=== PATIENT | female | born 1990 | race Hispanic/Latino ===

== ENCOUNTER 2025-06-29 02:58 | Inpatient (IN) | payer OTHER, SELFPAY ==
[2025-06-28 18:59] VITALS: BP 140/89
[2025-06-28 19:26] LABS: Hematocrit 40.9 % (37.0-47.0); Hemoglobin 13.5 g/dL (12.0-16.0); Mean Corp Hgb Conc. 33.0 g/dL (33.0-37.0); Mean Corpuscular Volume 87.6 fL (81.0-99.0); Nucleated Red Blood Cells % 0 %; Platelet Count 295 10^3/uL (130-400); Red Cell Dist. Width 12.2 % (11.5-14.5)
[2025-06-28 19:32] LABS: HCG, Serum Qualitative Screen Negative
[2025-06-28 19:36] LABS: ALT (SGPT) 30 U/L (0-35); AST (SGOT) 26 U/L (14-36); Albumin 4.7 g/dl (3.5-5.0); Alkaline Phosphatase 98 U/L (38-126); Blood Urea Nitrogen 17 mg/dl (7-17); Calcium 9.4 mg/dl (8.4-10.2); Carbon Dioxide 28 mmol/L (22-30); Chloride 101 mmol/L (98-107); Glucose 149 mg/dl (70-99); Lipase 83 U/L (23-300); Potassium 4.2 mmol/L (3.5-5.1); Sodium 137 mmol/L (135-145); Total Protein 8.2 g/dl (6.3-8.2); eGFR > 60.00
--- NOTE | 2025-06-28 21:43 | ED.GENMED ---
History of Present Illness
<Terry Garcia MD, Resident - Last Filed: 06/29/25 02:08>
General
Chief Complaint: Abdominal Pain
Source: patient and significant other
Exam Limitations: none
Time Seen by Provider: 06/28/25 21:09
History of Present Illness
History of Present Illness:
34-year-old female with her present at bedside presents with severe constant lower abdominal pain since this morning 8 AM, describes the pain as burning, has gotten progressively worse. Associated with 10 episodes of nonbloody vomiting,
chills, scant bloody vaginal discharge, urinary frequency, constipation. Patient has had history of previous UTIs. No fever, cough, diarrhea, chest pain, shortness of breath, dysuria.
Review of Systems
<Terry Garcia MD, Resident - Last Filed: 06/29/25 02:08>
Review of Systems
Allergies reviewed?: Yes
All Other Systems: ROS reviewed and negative except as documented in HPI and ROS
Phy Exam
<Terry Garcia MD, Resident - Last Filed: 06/29/25 02:08>
General Physical Exam
General Presentation: well appearing and no apparent distress
General Skin: warm and dry
General Habitus: normal
General Mental: alert
Cardiovascular Exam
Cardiovascular Exam: regular rate/rhythm and no edema
Pulmonary Exam
Pulmonary Exam: lungs clear and no respiratory distress
Gastrointestinal Exam
Gastrointestinal Exam: normal bowel sounds, soft, non distended and tender (suprapubic tenderness)
Neurological Exam
Neurological Exam: alert and oriented x3
Musculoskeletal Exam
Musculoskeletal Exam: full ROM and no edema
Sepsis
<Terry Garcia MD, Resident - Last Filed: 06/29/25 02:08>
Sepsis Screen
Sepsis Screen: Sepsis
Date: 06/29/25
Time: 02:07
<Molly Marin, DO - Last Filed: 06/29/25 14:12>
Sepsis Screening
Sepsis Assessment: Sepsis
Sepsis Screening: Lactate >2mmol/L
Sepsis Screen
Sepsis Screen: Sepsis
Date: 06/29/25
Time: 14:12
Course
<Terry Garcia MD, Resident - Last Filed: 06/29/25 02:08>
Orders/Labs/Results
Orders:
Orders
06/28/25 19:02
Test Result ONCE
06/28/25 19:09
Complete Blood Count/With Diff Urgent
Comprehensive Metabolic Panel Urgent
HCG, Serum Qualitative Screen Urgent
Comment: Notify provider if positive test present
Lipase Urgent
06/28/25 21:29
0.9% Sodium Chloride 1000 ml [Nss] 1,000 ml IV BOLUS
Ketorolac [Toradol] 15 mg IV NOW STA
06/28/25 21:38
Lactic Acid Urgent
Urinalysis Reflex To Culture Urgent
Date Specimen was Collected: 06/28/25
Time Specimen was Collected: 21:33
Urine Microscopic Reflex Cult Urgent
Urine Culture Urgent
KYLER Source: U
Specimen Description:
Date Specimen was Collected: 06/28/25
Time Specimen was Collected: 21:33
06/28/25 22:19
CT Abd/pelvis W Iv Cont Urgent
Comment:
Reason For Exam: L-flank pain, urinary symptoms, stone vs pyelo
06/28/25 22:20
Morphine Sulfate 4 mg IV NOW STA
06/28/25 22:33
Acetaminophen [Tylenol] 1,000 mg PO NOW STA
06/28/25 22:56
Cefepime HCl [Maxipime] 2,000 mg IV NOW STA
06/28/25 23:45
Blood Culture Q30M
KYLER Source: Blood/Venous
Specimen Description:
06/29/25 00:07
Blood Culture Q30M
KYLER Source: Blood/Venous
Specimen Description:
06/29/25 01:56
0.9% Sodium Chloride 1000 ml [Nss] 1,000 ml IV BOLUS
06/29/25 02:25
Admit/Transfer Patient As Directed
Co-Sign Provider:
Level of Care: Inpatient admission
Assign to:: IMU- Intermediate Care
Physician / Group: Domo
Diagnosis: L Ureteral Stone, UTI, Sepsis
Reason for Hospitalization: L Ureteral Stone, UTI, Sepsis
Expected length of stay greater than two midnights?: Yes
ELOS- Estimated Length of Stay in days: 3
I certify the patient meets the requirements for IP care: Yes
PRN Pain Medication Management As Directed
May give lesser potent ordered pain med per pt: Yes
preference::
Protocol:: Medication orders for pain may be administered in a
manner that supports deferring to patient preference
when the pt is:
- Requesting an ordered lesser potent pain medication.
Least to most potent pain medications are defined
as: acetaminophen < NSAID < tramadol < opioids
(morphine, oxycodone, hydromorphone).
- Requesting a lesser dose of the same medication IF
ORDERED.
- Requesting a less intrusive route of administration
if both routes are prescribed by the provider (PO <
IV).
06/29/25 02:26
Code Status As Directed
Resuscitation Status: Full Code
06/29/25 02:34
Dexamethasone Sod Phosphate [Decadron] 20 mg .ROUTE .STK-MED ONE
Fentanyl Citrate/Pf [Sublimaze] 100 mcg .ROUTE .STK-MED ONE
Lidocaine 2% Mpf [Xylocaine Mpf 2%] 100 mg .ROUTE .STK-MED ONE
Midazolam HCl [Versed] 2 mg .ROUTE .STK-MED ONE
Ondansetron Injectable [Zofran] 4 mg .ROUTE .STK-MED ONE
Propofol [Diprivan] 20 ml .ROUTE .STK-MED
06/29/25 03:59
0.9% Sodium Chloride 1000 ml [Nss] 1,000 ml IV 100 mls/hr
Acetaminophen [Tylenol] 650 mg PO Q4HPRN PRN
HYDROmorphone [Dilaudid] 0.5 mg IV Q4HPRN PRN
Ondansetron Injectable [Zofran] 4 mg IV Q6HPRN PRN
06/29/25 03:59
UROLOGY CONSULT Routine
Consulting Provider: Torres Jacobs
Was physician already notified: Yes
Comment: L Ureteral Stone, UTI, Sepsis
Activity As Directed
Activity Level: Ambulate
With Assistance
EKG with chest pain [ECG as needed] As Directed
ECG as needed for:: Chest Pain
I/O [Intake/ Output] As Directed
Frequency: Per unit guidelines
Pneumatic Compression Sleeves As Directed
Type: Knee high
Vital Signs As Directed
Frequency: Per unit guidelines
Weight As Directed
Frequency: Daily
Oxygen Therapy [O2 Therapy] [RESP] Routine
Titrate/Wean O2 to maintain O2 sat greater than (%): 94
DX Deep Vein Thrombosis Video Routine
06/29/25 06:02
Basic Metabolic Panel IN AM
Complete Blood Count/No Diff IN AM
Lactic Acid Q6H
06/29/25 08:00
CefTRIAXone [Rocephin] 1,000 mg IV Q24H
06/29/25 11:57
Lactic Acid Q6H
06/29/25 18:00
Lactic Acid Q6H
Abnormal Lab Results
06/28/25 06/28/25
19:09 21:38
WBC 16.6 H 10^3/uL
(4.8-10.8)
Abs Immat Gran (auto) 0.1 H 10^3/uL
(0-0.05)
Absolute Neuts (auto) 15.1 H 10^3/uL
(1.4-6.5)
Absolute Lymphs (auto) 0.8 L 10^3/uL
(1.2-3.4)
Neutrophils % 90.8 H %
(42.2-75.2)
Lymphocytes % 5.1 L %
(20.5-51.1)
Glucose 149 H mg/dl
(70-99)
Lactic Acid 2.3 H mmol/L
(0.7-2.0)
Urine Ketones 2+ A
(Negative)
Ur Occult Blood Reflex 4+ A
(Negative)
Leukocyte Esterase Rfl 1+ A
(Negative)
Urine RBC 7-10 A /HPF
(0-2)
Urine Bacteria (Reflex) Moderate A
(Negative)
Urine Albumin (Reflex) 2+ A
(Neg - Trace)
06/28/25 19:09
06/28/25 19:09
Vital Signs
Initial and Last Documented VS:
Initial Vital Signs
Temp Pulse Resp BP Pulse Ox
98.3 F 103 20 140/89 98
06/28/25 18:59 06/28/25 18:59 06/28/25 18:59 06/28/25 18:59 06/28/25 18:59
Last Documented Vital Signs
Temp Pulse Resp BP Pulse Ox
98.4 F 107 16 101/62 96
06/29/25 10:55 06/29/25 10:55 06/29/25 10:55 06/29/25 10:55 06/29/25 10:55
<Molly Marin, DO - Last Filed: 06/29/25 14:12>
Orders/Labs/Results
Orders:
Orders
06/28/25 19:02
Test Result ONCE
06/28/25 19:09
Complete Blood Count/With Diff Urgent
Comprehensive Metabolic Panel Urgent
HCG, Serum Qualitative Screen Urgent
Comment: Notify provider if positive test present
Lipase Urgent
06/28/25 21:29
0.9% Sodium Chloride 1000 ml [Nss] 1,000 ml IV BOLUS
Ketorolac [Toradol] 15 mg IV NOW STA
06/28/25 21:38
Lactic Acid Urgent
Urinalysis Reflex To Culture Urgent
Date Specimen was Collected: 06/28/25
Time Specimen was Collected: 21:33
Urine Microscopic Reflex Cult Urgent
Urine Culture Urgent
KYLER Source: U
Specimen Description:
Date Specimen was Collected: 06/28/25
Time Specimen was Collected: 21:33
06/28/25 22:19
CT Abd/pelvis W Iv Cont Urgent
Comment:
Reason For Exam: L-flank pain, urinary symptoms, stone vs pyelo
06/28/25 22:20
Morphine Sulfate 4 mg IV NOW STA
06/28/25 22:33
Acetaminophen [Tylenol] 1,000 mg PO NOW STA
06/28/25 22:56
Cefepime HCl [Maxipime] 2,000 mg IV NOW STA
06/28/25 23:45
Blood Culture Q30M
KYLER Source: Blood/Venous
Specimen Description:
06/29/25 00:07
Blood Culture Q30M
KYLER Source: Blood/Venous
Specimen Description:
06/29/25 01:56
0.9% Sodium Chloride 1000 ml [Nss] 1,000 ml IV BOLUS
06/29/25 02:25
Admit/Transfer Patient As Directed
Co-Sign Provider:
Level of Care: Inpatient admission
Assign to:: IMU- Intermediate Care
Physician / Group: Domo
Diagnosis: L Ureteral Stone, UTI, Sepsis
Reason for Hospitalization: L Ureteral Stone, UTI, Sepsis
Expected length of stay greater than two midnights?: Yes
ELOS- Estimated Length of Stay in days: 3
I certify the patient meets the requirements for IP care: Yes
PRN Pain Medication Management As Directed
May give lesser potent ordered pain med per pt: Yes
preference::
Protocol:: Medication orders for pain may be administered in a
manner that supports deferring to patient preference
when the pt is:
- Requesting an ordered lesser potent pain medication.
Least to most potent pain medications are defined
as: acetaminophen < NSAID < tramadol < opioids
(morphine, oxycodone, hydromorphone).
- Requesting a lesser dose of the same medication IF
ORDERED.
- Requesting a less intrusive route of administration
if both routes are prescribed by the provider (PO <
IV).
06/29/25 02:26
Code Status As Directed
Resuscitation Status: Full Code
06/29/25 02:34
Dexamethasone Sod Phosphate [Decadron] 20 mg .ROUTE .STK-MED ONE
Fentanyl Citrate/Pf [Sublimaze] 100 mcg .ROUTE .STK-MED ONE
Lidocaine 2% Mpf [Xylocaine Mpf 2%] 100 mg .ROUTE .STK-MED ONE
Midazolam HCl [Versed] 2 mg .ROUTE .STK-MED ONE
Ondansetron Injectable [Zofran] 4 mg .ROUTE .STK-MED ONE
Propofol [Diprivan] 20 ml .ROUTE .STK-MED
06/29/25 03:59
0.9% Sodium Chloride 1000 ml [Nss] 1,000 ml IV 100 mls/hr
Acetaminophen [Tylenol] 650 mg PO Q4HPRN PRN
HYDROmorphone [Dilaudid] 0.5 mg IV Q4HPRN PRN
Ondansetron Injectable [Zofran] 4 mg IV Q6HPRN PRN
06/29/25 03:59
UROLOGY CONSULT Routine
Consulting Provider: Torres Jacobs
Was physician already notified: Yes
Comment: L Ureteral Stone, UTI, Sepsis
Activity As Directed
Activity Level: Ambulate
With Assistance
EKG with chest pain [ECG as needed] As Directed
ECG as needed for:: Chest Pain
I/O [Intake/ Output] As Directed
Frequency: Per unit guidelines
Pneumatic Compression Sleeves As Directed
Type: Knee high
Vital Signs As Directed
Frequency: Per unit guidelines
Weight As Directed
Frequency: Daily
Oxygen Therapy [O2 Therapy] [RESP] Routine
Titrate/Wean O2 to maintain O2 sat greater than (%): 94
DX Deep Vein Thrombosis Video Routine
06/29/25 06:02
Basic Metabolic Panel IN AM
Complete Blood Count/No Diff IN AM
Lactic Acid Q6H
06/29/25 08:00
CefTRIAXone [Rocephin] 1,000 mg IV Q24H
06/29/25 11:57
Lactic Acid Q6H
06/29/25 18:00
Lactic Acid Q6H
Abnormal Lab Results
06/28/25 06/28/25
19:09 21:38
WBC 16.6 H 10^3/uL
(4.8-10.8)
Abs Immat Gran (auto) 0.1 H 10^3/uL
(0-0.05)
Absolute Neuts (auto) 15.1 H 10^3/uL
(1.4-6.5)
Absolute Lymphs (auto) 0.8 L 10^3/uL
(1.2-3.4)
Neutrophils % 90.8 H %
(42.2-75.2)
Lymphocytes % 5.1 L %
(20.5-51.1)
Glucose 149 H mg/dl
(70-99)
Lactic Acid 2.3 H mmol/L
(0.7-2.0)
Urine Ketones 2+ A
(Negative)
Ur Occult Blood Reflex 4+ A
(Negative)
Leukocyte Esterase Rfl 1+ A
(Negative)
Urine RBC 7-10 A /HPF
(0-2)
Urine Bacteria (Reflex) Moderate A
(Negative)
Urine Albumin (Reflex) 2+ A
(Neg - Trace)
06/28/25 19:09
06/28/25 19:09
Vital Signs
Initial and Last Documented VS:
Initial Vital Signs
Temp Pulse Resp BP Pulse Ox
98.3 F 103 20 140/89 98
06/28/25 18:59 06/28/25 18:59 06/28/25 18:59 06/28/25 18:59 06/28/25 18:59
Last Documented Vital Signs
Temp Pulse Resp BP Pulse Ox
98.4 F 107 16 101/62 96
06/29/25 10:55 06/29/25 10:55 06/29/25 10:55 06/29/25 10:55 06/29/25 10:55
<Terry Garcia MD, Resident - Last Filed: 06/29/25 02:08>
MDM/Problems Addressed
Differential Diagnosis Includes:
UTI, pyelonephritis, nephrolithiasis, appendicitis, pancreatitis, ectopic , ovarian torsion
MDM/Problems Addressed:
- Vitals show temperature of 101.8
- CBC shows leucocytosis with wbc of 16.6
- CMP is unremarkable
- UA shows 4+ occult blood
- B Hcg- negative
- Toradol for pain however not controlled so added Tylenol and morphine
- order empiric cefepime since patient meets criteria for sepsis, and blood cultures
- Ct abdomen shows CT shows a 4 x 5 mm stone at the left UVJ with hydronephrosis and perinephric stranding, consulted urology who will remove stone as it cannot pass naturally
<Terry Garcia MD, Resident - Last Filed: 06/29/25 02:08>
*Pulse Oximetry
SaO2: 98
Oxygen Mode of Delivery: Room air
Patient hypoxic: no
*Critical Care Note
Total Time (30-74mins, 75-104mins- exclusive of procedures): Not Applicable
<Molly Marin DO - Last Filed: 06/29/25 14:12>
*Critical Care Note
Total Time (30-74mins, 75-104mins- exclusive of procedures): 40
comment:
The high probability of a clinically significant, sudden or life threatening deterioration of the genitourinary system(s), sepsis, required my full and direct attention, intervention and personal management. The aggregate critical care time was 40
minutes. This time is in addition to time spent performing reported procedures but includes the following:
[x] Data Review and interpretation
[x] Patient assessment and monitoring of vital signs
[x] Documentation
[x] Medication orders and management
ED Attending Note
<Terry Garcia MD, Resident - Last Filed: 06/29/25 02:08>
-
Portions of this chart may have been created with voice recognition software.� Occasional wrong word or��sound alike� substitutions may have occurred due to the inherent limitations of voice recognition software.
<Molly Marin DO - Last Filed: 06/29/25 14:12>
ED Attending Note
Patient seen and examined by attending physician: Yes
I performed the substantive portion of visit, reviewed & personally made and approve the management plan that is documented in note by myself or BONNIE.: Yes
I performed a history and physical exam of patient and discussed management with resident, I reviewed resident's note and agree with documented findings and plan of care.: Yes
ED Attending Note:
34-year-old female, Gabonese-speaking, without significant past medical history presenting to the emergency department for abdominal pain. Patient reports symptoms started at 8 AM this morning, notes pain in her left flank with radiation to her
lower abdomen. Also reports dysuria, nausea, vomiting, fevers and chills. Reports increased urinary frequency. Denies any history of kidney stone. Denies prior history of abdominal surgeries. Denies chest pain or difficulty breathing. Vital
signs on arrival significant for mild tachycardia.
On exam, patient is uncomfortable in appearance secondary to pain, noting pain mostly to the left flank, going into the abdomen. On exam, minimal tenderness to the abdomen, slight left lower quadrant pain. Primary concern for pyelonephritis versus
nephrolithiasis. Patient with rigors. Initial re-temperature is normal. Plan for laboratory analysis, urinalysis, CT imaging. Toradol administered for pain
22:45 - After Toradol, notes that pain has improved, however still having shaking chills. Retemperature shows 100.8 orally. Will administer Tylenol. Labs show leukocytosis and lactic acid added which is 2.5. At this time concern for sepsis.
Blood pressure remained stable without concerns for severe sepsis or septic shock so we will continue IV fluids as clinically indicated. Will start on cefepime for concern of possible urinary component. Pending CT imaging
00:30 -CT shows a 4 x 5 mm stone at the left UVJ with hydronephrosis and perinephric stranding. Concern for infected stone. Will discuss with urology with plan for admission, and likely need for urgent stone removal
Discharge Plan
Departure
Patient Disposition: Admit
Date of Disposition: 06/29/25
Time of Disposition: 00:44
Presentation/result/management discussed w/ accepting MD/DO: Hospitalist
Patient with high blood pressure during this ER visit?: No
Condition: Fair
Discharge Problem:
Calculus of left ureter, Fever, Sepsis
Interventions
Interventions:
*Risk Screen - Suicide Last Done: 06/29/25 06:16
*General Assessment Last Done: 06/28/25 18:59
*Neglect/Abuse Screening Last Done: 06/28/25 18:59
*ED- Fall Risk Assessment Last Done: 06/29/25 02:52
*Nursing Disposition Last Done: 06/29/25 02:52
OL-Ywgjne-Oimcttlfwf Assessment Last Done: 06/28/25 22:00
Discharge Date and Time
Discharge Date/Time: 06/29/25 03:10
[2025-06-28] MEDS: NSS 1000 IV (21:44)
[2025-06-28] MEDS: TORADOL 15 MG IV (21:44)
[2025-06-28 21:54] LABS: Urine Character Slightly Cloudy (Clear)
[2025-06-28 22:08] LABS: Urine Squamous Cell >30 /LPF (Few); Urine Urothelial Cell 0-2 /LPF (FEW)
[2025-06-28] MEDS: TYLENOL 1000 MG PO (22:39)
[2025-06-28] MEDS: MAXIPIME 2000 MG IV (23:26)
[2025-06-28] MEDS: MORPHINE SULFATE 4 MG IV (23:49)
[2025-06-29] VITALS (17 sets, daily range): BP systolic 90–146; BP diastolic 46–86; BMI 41.0
--- NOTE | 2025-06-29 02:28 | HPS.HSE ---
Family Physician
-
Family Physician: * NONE
Chief Complaint
-
Abd pain
History of Present Illness
Patient is a 34y F with PMH significant for obesity who presents to ED complaining of abdominal pain. History obtained from patient and her at the bedside. Patient was feeling well until around 8 AM this morning when she developed
sudden onset of severe LLQ pain. Pain radiated around to the L flank and was associated with nausea and multiple episodes of emesis. Pain persisted throughout the day regardless of position, activity, OTC medications, etc. Patient presented to
the ED for further evaluation.
She denies any prior history of similar symptoms.
She denies any known history of kidney stones; though, she does report prior instances of severe / self-limited lower back pain which she had always attributed to muscular pains.
Patient has a 21 month old child and she is currently breast feeding.
Medical History
Past Medical History
Past Medical History: Reports Other
Additional Past Medical History:
Obesity
Past Surgical History: Reports Other
Additional Past Surgical History:
Septoplasty
Social History
Tobacco: Non-smoker
Alcohol: Occasional
Drug: None
Personal:
Living: With Family
Family History
Family History: Not pertinent
Allergies / Home Medications
Allergies reflects when Allergies were last updated in [employer].
Home Medications with original date entered in [employer]
Allergy/Medication List:
Allergies
Allergy/AdvReac Type Severity Reaction Status Date / Time
No Known Allergies Allergy Unverified 09/20/23 16:18
Home Medications
No Current Medications
Review of Systems
-
History Source: Patient
A 12 point ROS was completed and negative except as noted: Yes
Constitutional: Reports Fatigue; Denies Fever or Chills
EENT: Denies Sore Throat
Respiratory: Denies Cough or Trouble Breathing
Cardiac: Denies Chest Pain or Palpitations
Abdomen/GI: Reports Abdominal Pain, Nausea and Vomiting; Denies Diarrhea, Bloody Stools or Black Stools
: Reports Frequency and Flank Pain; Denies Dysuria or Bleeding
Neurological: Denies Dizzy or Headache
Psych: Denies Depression or Anxiety
Physical Exam
Vital Signs
Vital Signs
Temp Pulse Resp BP Pulse Ox
100.8 F H 133 24 122/65 96
06/28/25 22:37 06/29/25 01:45 06/29/25 01:45 06/29/25 01:30 06/29/25 01:45
Physical Exam
General: Other (34y F in mild distress due to abdominal pain.)
HEENT: Moist mucous membranes and Other (Thick neck.)
Respiratory: Clear; No Wheezes, Rales or Rhonchi
Cardiac: S1/S2 and Tachycardia; No Murmur
GI: Soft, Non Distended, Normal Bowel Sounds and Other (Pos L sided abdominal tenderness with voluntary guarding. Pos BS.)
Musculoskeletal: No Clubbing, No Cyanosis and No Edema
Neuro: AO x 3
Laboratory Results
-
06/28/25 19:09
06/28/25 19:09
Laboratory Results
Lactic Acid 2.3 mmol/L (0.7-2.0) H 06/28/25 21:38
Total Bilirubin 1.0 mg/dl (0.2-1.3) 06/28/25 19:09
AST 26 U/L (14-36) 06/28/25 19:09
ALT 30 U/L (0-35) 06/28/25 19:09
Alkaline Phosphatase 98 U/L (38-126) 06/28/25 19:09
Lipase 83 U/L (23-300) 06/28/25 19:09
Impression/Plan
-
A/P: Patient is a 34y F with no significant PMH who presents to ED complaining of abrupt onset of L abdominal pain / L flank pain since this AM.
Left Ureteral Stone
UTI secondary to the above
Sepsis secondary to the above
- Admit for further evaluation and treatment.
- Patient presents with fever, tachycardia, tachypnea, leukocytosis and exam / CT findings consistent with L ureteral stone / obstruction.
- To OR this evening for stone removal / stent and alleviating obstruction.
- Appreciate Urology evaluation.
- IVFs, IV abx pending culture data, pain control, antipyretics, etc.
- Follow fever curve, serial lactate, monitor for clinical improvement.
Obesity due to excess calories
- Affects all aspects of care.
- Encourage healthy diet and increased exercise with goal of weight loss.
DVT Prophylaxis: SCDs
Code Status: Full
--- NOTE | 2025-06-29 03:06 | CONS.URO ---
Consultation
-
Date/Time Consultation Performed: 0300 06/29/25
Performing Provider: Peffer
Reason for Consultation: Septic stone
Medical History
History of Present Illness
34F with sepsis and obstructing L distal ureteral stone
No prior stone history
Past Medical History
Past Medical History: Other
Family History
Family History: Reviewed & Not Pertinent
Allergies/Home Medications
Allergies
Allergy/AdvReac Type Severity Reaction Status Date / Time
No Known Allergies Allergy Unverified 09/20/23 16:18
Home Medications
�Medication �Instructions �Recorded �Confirmed �Type
vitamin-ferrous fumarate 1 tab PO DAILY Supplement 09/20/23 09/20/23 History
28 mg iron-folic acid 800 mcg
tablet ( Tablet)
ibuprofen 600 mg tablet 600 mg PO Q6HPRN PRN moderate 09/24/23 Rx
pain/cramps #90 tabs
Physical Exam
Vital Signs
Vital Signs
Temp Pulse Resp BP Pulse Ox
100.8 F H 132 28 97/60 97
06/28/25 22:37 06/29/25 02:45 06/29/25 02:45 06/29/25 02:30 06/29/25 02:45
Lab / Testing Results
Laboratory Results
06/28/25 19:09
06/28/25 19:09
Physical Exam
General: Well Developed, Well Nourished and No Apparent Distress
GI: Soft
Genito-urinary: Costovertebral Angle Tend
Neuro: AO x 3
Psych: Calm and Intact Judgement
Assessment / Plan
-
34F with sepsis and obstructing L distal ureteral stone
- OR emergently for cystoscopy, L ureteral stent
- Broad spectrum abx pending cultures
- Outpatient follow up for stone and stent removal after discharge
--- NOTE | 2025-06-29 04:24 | W.IMMPOSTOP ---
Surgical Immed Post Op Note
-
Primary Surgeon: Peffer
Assisting Surgeon: -
Pre-op Diagnosis: sepsis, L ureteral stone
Post-op Diagnosis: same
Procedure Performed: L ureteral stent
Anesthesia Type: gen
Specimen / Cultures: none
Estimated Blood Loss: none
Complications: none
Operative Findings: purulent urine
[2025-06-29] MEDS: NSS 1000 IV ×4 (05:41→21:07)
[2025-06-29] MEDS: MOTRIN 400 MG PO (06:16)
[2025-06-29 06:34] LABS: Hematocrit 34.6 % (37.0-47.0); Hemoglobin 11.2 g/dL (12.0-16.0); Mean Corp Hgb Conc. 32.4 g/dL (33.0-37.0); Mean Corpuscular Volume 89.4 fL (81.0-99.0); Platelet Count 202 10^3/uL (130-400); Red Cell Dist. Width 12.7 % (11.5-14.5)
[2025-06-29 06:44] LABS: Blood Urea Nitrogen 16 mg/dl (7-17); Calcium 7.9 mg/dl (8.4-10.2); Carbon Dioxide 24 mmol/L (22-30); Chloride 105 mmol/L (98-107); Glucose 126 mg/dl (70-99); Potassium 3.3 mmol/L (3.5-5.1); Sodium 136 mmol/L (135-145); eGFR > 60.00
--- NOTE | 2025-06-29 08:38 | W.PN.HOSP.TC ---
Today's Communication/Plan
-
IVF
IV Ceftriaxone
trend Lactate
appreciate Urology
Assessment / Plan
Assessment / Plan
A/P: Patient is a 34y F with no significant PMH who presents to ED complaining of abrupt onset of L abdominal pain / L flank pain since this AM. She was febrile up to 100.[address] with obstructing stone left ureter at UVJ 5 x 4 mm
with mild to moderate hydronephrosis, prominent perinephric fat stranding.
Left Ureteral Stone
UTI secondary to the above
Severe Sepsis secondary to the above
-s/p OR early this morning for stone removal / stent and alleviating obstruction.
- Appreciate Urology evaluation.
- continue IVF
- trend lactate
- IV Ceftriaxone, follow up culture; UA without inflammation but may not have been from blocked infected urine
Obesity due to excess calories
- Affects all aspects of care.
- Encourage healthy diet and increased exercise with goal of weight loss.
DVT Prophylaxis: SCDs
Code Status: Full
Anticipated Discharge: 24 - 48 hours
Subjective/Interval History
-
Date of Service: June 29, 2025
seen post OR
feeling hungry, no longer nauseated
mild pain
Objective Data
-
Labs:
Laboratory Results
06/29/25
06:02
WBC 14.2 H
Hgb 11.2 L
Hct 34.6 L
Plt Count 202 D
Sodium 136
Potassium 3.3 L
Chloride 105
Carbon Dioxide 24
BUN 16
Creatinine 0.9
Glucose 126 H
Calcium 7.9 L D
Vital Signs:
Vital Signs
Temp Pulse Resp BP Pulse Ox
97.7 F 124 16 99/67 100
06/29/25 05:10 06/29/25 05:10 06/29/25 05:10 06/29/25 05:10 06/29/25 05:10
I&O
06/28/25 06/29/25 06/30/25
06:59 06:59 06:59
Intake Total 350 / 350
Balance 350 / 350
Review of Systems
-
History Source: Patient
All other systems: Reviewed and negative
Physical Exam
-
General: No Apparent Distress
HEENT: PERRLA
Respiratory: Clear to Auscultation; Negative Wheezes
Cardiac: Regular Rhythm and S1/S2
GI: Soft and Nontender
Musculoskeletal: No Edema
Skin: Warm and Dry; Negative Rash
Neuro: AO x 3
Psych: Calm
Data Reviewed
-
Diagnostic Radiology: Report Reviewed by me
Labs: Labs Reviewed by me
[2025-06-29] MEDS: ROCEPHIN 1000 MG IV (09:01)
[2025-06-29] MEDS: STERILE WATER FOR INJECTION 10 ML IV (09:01)
[2025-06-29] MEDS: KCL 40 MEQ PO (09:01)
[2025-06-29 09:16] LABS: Magnesium 1.6 mg/dl (1.6-2.3)
[2025-06-29] MEDS: TYLENOL 650 MG PO ×2 (11:22→21:12)
--- NOTE | 2025-06-29 12:52 | W.PN.URO.CBU ---
Today's Communication / Plan
-
- s/p cystoscopy, L ureteral stent 06/29
- Broad spectrum abx pending cultures
- Outpatient follow up for stone and stent removal after discharge
Assessment / Plan
-
34F with sepsis and obstructing L distal ureteral stone
- s/p cystoscopy, L ureteral stent 06/29
- Tolerating stent well with no colic
- Broad spectrum abx pending cultures
- Outpatient follow up for stone and stent removal after discharge
Diagnosis
-
Date of Service: June 29, 2025
-
Patient Diagnosis:
Fever, obstructing L ureteral stone
s/p stent placement 06/29/25
Subjective
-
no issues overnight
tolerating stent
Objective
-
Vital Signs
Temp Pulse Resp BP Pulse Ox
98.4 F 107 16 101/62 96
06/29/25 10:55 06/29/25 10:55 06/29/25 10:55 06/29/25 10:55 06/29/25 10:55
Intake and Output
06/28/25 06/29/25 06/30/25
06:59 06:59 06:59
Intake Total 350 / 350
Balance 350 / 350
Intake:
IV fluids (Total) 350 / 350
Normosol 350 / 350
Laboratory Results
06/29/25 06:02
06/29/25 06:02
Physical Exam
-
General - well developed, well nourished, no acute distress
--- NOTE | 2025-06-29 16:12 | CM ---
trade show manager reviewed patient's chart and met with patient and patient lives with her spouse in a 1st floor apartment at [facility], patient is independent with adl's and ambulation, no dme, home when stable, no needs.
PCP: Ila Gerard
Pharmacy: [facility] on [facility].
[2025-06-30 04:03] VITALS: BP 117/67
[2025-06-30] MEDS: NSS 1000 IV (05:02)
[2025-06-30 06:00] VITALS: BMI 41.5
[2025-06-30 07:00] VITALS: BP 95/68
[2025-06-30 07:22] LABS: Hematocrit 32.2 % (37.0-47.0); Hemoglobin 10.6 g/dL (12.0-16.0); Mean Corp Hgb Conc. 32.9 g/dL (33.0-37.0); Mean Corpuscular Volume 93.6 fL (81.0-99.0); Platelet Count 204 10^3/uL (130-400); Red Cell Dist. Width 13.2 % (11.5-14.5)
[2025-06-30 07:28] LABS: Blood Urea Nitrogen 14 mg/dl (7-17); Calcium 8.1 mg/dl (8.4-10.2); Carbon Dioxide 29 mmol/L (22-30); Chloride 108 mmol/L (98-107); Estimated Creatinine Clearance > 125 ml/min; Glucose 97 mg/dl (70-99); Magnesium 2.1 mg/dl (1.6-2.3); Potassium 3.9 mmol/L (3.5-5.1); Sodium 140 mmol/L (135-145); eGFR > 60.00
--- NOTE | 2025-06-30 08:23 | W.PN.URO.CBU ---
Today's Communication / Plan
-
- IV abx pending cultures - on ceftriaxone
- Trend WBC - increased today. Consider broader abx coverage if signs of worsening infection
- Outpatient follow up for stone and stent removal after discharge
Assessment / Plan
-
34F with sepsis and obstructing L distal ureteral stone
- s/p cystoscopy, L ureteral stent 06/29
- Tolerating stent well with no colic
- IV abx pending cultures - on ceftriaxone
- Trend WBC - increased today. Consider broader abx coverage if signs of worsening infection
- Outpatient follow up for stone and stent removal after discharge
Diagnosis
-
Date of Service: June 30, 2025
-
Patient Diagnosis:
Fever, obstructing L ureteral stone
s/p stent placement 06/29/25
Subjective
-
no events overnight
Objective
-
Vital Signs
Temp Pulse Resp BP Pulse Ox
99.6 F 107 16 95/68 96
06/30/25 07:00 06/30/25 07:00 06/30/25 07:00 06/30/25 07:00 06/30/25 07:00
Intake and Output
06/29/25 06/30/25 07/01/25
06:59 06:59 06:59
Intake Total 350 / 350 1860 / 1860
Balance 350 / 350 1860 / 1860
Intake:
Oral fluids 560 / 560
IV fluids (Total) 350 / 350 1300 / 1300
Normosol 350 / 350
Other:
Number of approximated MODERATE 3
amounts of urine
Laboratory Results
06/30/25 06:01
06/30/25 06:01
Physical Exam
-
General - well developed, well nourished, no acute distress
[2025-06-30 08:45] LABS: Nucleated Red Blood Cells % 0 %
[2025-06-30] MEDS: STERILE WATER FOR INJECTION 10 ML IV ×2 (08:53→19:59)
[2025-06-30] MEDS: ROCEPHIN 1000 MG IV (08:54)
--- NOTE | 2025-06-30 08:55 | W.PN.HOSP.TC ---
Today's Communication/Plan
-
WBCs increased, still with some abdominal pain
Transition to Cefepime
Recheck urine culture ordered
Assessment / Plan
Assessment / Plan
Physical Exam
General: No Apparent Distress
HEENT: Normocephalic
Respiratory: Clear to Auscultation Bilaterally
Cardiac: Regular Rhythm and S1/S2
GI: Soft and Nontender. Positive bowel sounds.
Musculoskeletal: No Edema
Skin: Warm and Dry; Negative Rash
Neuro: AO x 3
Psych: Calm
Assessment/Plan
Patient is a 34 y/o female with no significant PMH who presented to [facility] ED complaining of abrupt onset of L abdominal pain / L flank pain since this AM. She was febrile up to 100.[address] with obstructing stone left ureter at UVJ 5 x 4
mm with mild to moderate hydronephrosis, prominent perinephric fat stranding.
Left Ureteral Stone status post left ureteral stent
UTI secondary to the above
Severe Sepsis secondary to the above
-s/p OR early for urinary stent placement
- Appreciate Urology evaluation.
- WBC increasing, change IV Ceftriaxone to Cefepime especially in setting of some abdominal pain and rising WBCs, follow up culture; UA without inflammation but may not have been from blocked infected urine
Obesity due to excess calories
- Affects all aspects of care.
- Encourage healthy diet and increased exercise with goal of weight loss.
DVT Prophylaxis: SCDs. Lovenox.
Code Status: Full COde
Anticipated Discharge: 24 - 48 hours
Subjective/Interval History
-
Date of Service: June 30, 2025
Patient was seen and examined. Overall she is feeling better, no new symptoms.
Objective Data
-
Labs:
Laboratory Results
06/30/25
06:01
WBC 20.3 H
Hgb 10.6 L
Hct 32.2 L
Plt Count 204
Sodium 140
Potassium 3.9
Chloride 108 H
Carbon Dioxide 29
BUN 14
Creatinine 0.6
Glucose 97
Calcium 8.1 L
Vital Signs:
Vital Signs
Temp Pulse Resp BP Pulse Ox
99.6 F 107 16 95/68 96
06/30/25 07:00 06/30/25 07:00 06/30/25 07:00 06/30/25 07:00 06/30/25 07:00
I&O
06/29/25 06/30/25 07/01/25
06:59 06:59 06:59
Intake Total 350 / 350 1859
Balance 350 / 350 1859
[2025-06-30] MEDS: TYLENOL 650 MG PO ×2 (09:02→15:12)
[2025-06-30 11:15] VITALS: BP 106/72
[2025-06-30 13:15] LABS: Urine Character Clear (Clear)
[2025-06-30 13:37] LABS: Urine Squamous Cell 16-20 /LPF (Few)
--- NOTE | 2025-06-30 13:56 | CM ---
CM following re: discharge planning.
Reviewed pt's chart, met with pt.
Pt is s/p cystoscopy, L ureteral stent 06/29, continue supportive care. Per Urology, outpatient follow up for stone and stent removal after discharge.
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
D/C plan: home with family. to transport.
[2025-06-30 15:15] VITALS: BP 117/76
[2025-06-30] MEDS: TORADOL 15 MG IV (18:36)
[2025-06-30 19:05] VITALS: BP 102/66
[2025-06-30] MEDS: LOVENOX 40 MG SC (19:59)
[2025-06-30] MEDS: MAXIPIME 1000 MG IV (19:59)
[2025-06-30 23:00] VITALS: BP 112/71
[2025-07-01 03:00] VITALS: BP 117/71
[2025-07-01 05:31] VITALS: BMI 41.5
[2025-07-01] MEDS: TYLENOL 650 MG PO ×4 (06:21→22:18)
[2025-07-01 07:00] VITALS: BP 135/77
[2025-07-01 07:31] LABS: Hematocrit 31.7 % (37.0-47.0); Hemoglobin 10.5 g/dL (12.0-16.0); Mean Corp Hgb Conc. 33.1 g/dL (33.0-37.0); Mean Corpuscular Volume 91.4 fL (81.0-99.0); Nucleated Red Blood Cells % 0 %; Platelet Count 224 10^3/uL (130-400); Red Cell Dist. Width 12.7 % (11.5-14.5)
[2025-07-01 07:43] LABS: Blood Urea Nitrogen 9 mg/dl (7-17); Calcium 8.4 mg/dl (8.4-10.2); Carbon Dioxide 31 mmol/L (22-30); Chloride 105 mmol/L (98-107); Estimated Creatinine Clearance > 125 ml/min; Glucose 91 mg/dl (70-99); Potassium 4.1 mmol/L (3.5-5.1); Sodium 139 mmol/L (135-145); eGFR > 60.00
[2025-07-01] MEDS: LOVENOX 40 MG SC ×2 (08:07→20:34)
[2025-07-01] MEDS: MAXIPIME 1000 MG IV (08:10)
[2025-07-01] MEDS: STERILE WATER FOR INJECTION 10 ML IV (08:11)
[2025-07-01 11:00] VITALS: BP 114/74
--- NOTE | 2025-07-01 11:46 | W.PN.HOSP.TC ---
Today's Communication/Plan
-
WBC improving
Switch to oral antibiotics tonight
Monitor going into tomorrow, and if doing well and leukocytosis continues to improve, will discharge
Assessment / Plan
Assessment / Plan
Physical Exam
General: No Apparent Distress
HEENT: Normocephalic
Respiratory: Clear to Auscultation Bilaterally
Cardiac: Regular Rhythm and S1/S2
GI: Soft and Nontender. Positive bowel sounds.
Musculoskeletal: No Edema
Skin: Warm and Dry; Negative Rash
Neuro: AO x 3
Psych: Calm
Assessment/Plan
Patient is a 34 y/o female with no significant PMH who presented to [facility] ED complaining of abrupt onset of L abdominal pain / L flank pain since this AM. She was febrile up to 100.[address] with obstructing stone left ureter at UVJ 5 x 4
mm with mild to moderate hydronephrosis, prominent perinephric fat stranding.
Left Ureteral Stone status post left ureteral stent
UTI secondary to the above
Severe Sepsis secondary to the above
-s/p OR early for urinary stent placement
- Appreciate Urology evaluation.
- WBC increased as of 06/30/25, then changed IV Ceftriaxone to Cefepime on 06/30/25, especially in setting of some abdominal pain and rising WBCs, then on 07/01/25, WBC count improving, urine culture (collected after Ceftriaxone started, but before
Cefepime given) with no growth, now change back to third generation cephalosporin but PO (Cefdinir)
- Given stone, will treat as complicated UTI, if doing well tomorrow, will discharge on 3rd generation Cephalosporin
Lactic acidosis due to severe sepsis
-Resolved
Hypokalemia
-Resolved
Obesity due to excess calories
- Affects all aspects of care.
- Encourage healthy diet and increased exercise with goal of weight loss.
DVT Prophylaxis: SCDs. Lovenox.
Code Status: Full COde
Anticipated Discharge: Within 24 hours
Subjective/Interval History
-
Date of Service: July 01, 2025
Patient was seen and examined. She reported feeling a whole lot better today, denied any new symptoms or complaints.
Objective Data
-
Labs:
Laboratory Results
07/01/25
07:02
WBC 15.5 H
Hgb 10.5 L
Hct 31.7 L
Plt Count 224
Sodium 139
Potassium 4.1
Chloride 105
Carbon Dioxide 31 H
BUN 9
Creatinine 0.5 L
Glucose 91
Calcium 8.4
Vital Signs:
Vital Signs
Temp Pulse Resp BP Pulse Ox
98.0 F 70 16 114/74 98
07/01/25 11:00 07/01/25 11:00 07/01/25 11:00 07/01/25 11:00 07/01/25 11:00
I&O
06/30/25 07/01/25 07/02/25
06:59 06:59 06:59
Intake Total 1859 1440 / 1440
Balance 1859 1440 / 1440
--- NOTE | 2025-07-01 12:23 | PN.CDI ---
CDI
- -
CDI:
Physician Documentation Request
Admit Date: 06/29/25 02:58
Dear Doctor Irlanda,
Clinical Indicators:
Patient admitted with severe sepsis due to UTI.
IVF: NSS 1 L bolus x 2 + maintenance.
Lactic acid level trend:
06/28/25 06/29/25 06/29/25
21:38 06:02 11:57
Lactic Acid 2.3 H 3.2 H 4.6 H*
06/29/25
18:19
Lactic Acid 2.2 H
Based on the above, could you clarify in the progress notes, the appropriate diagnosis, if significant, that supports the above abnormalities and additional evaluation, monitoring and/or treatment rendered:
Lactic acidosis due to severe sepsis
Elevated lactic acid level only
Other, please specify
Use of terms such as suspected, likely, concern for, or probable (associated with a specific diagnosis that is being evaluated, monitored, or treated as if it exists) are acceptable and can be coded in the inpatient setting, when documented at the
time of discharge.
Thank you,
NEGRO Contreras RN
CDI Specialist
available via tiger text
Please use your independent medical judgment in providing your response.
--- NOTE | 2025-07-01 12:31 | PN.CDI ---
CDI
- -
CDI:
Physician Documentation Request
Admit Date: 06/29/25 02:58
Dear Doctor Irlanda,
Clinical Indicators:
Patient admitted with severe sepsis due to UTI.
10/ KCL 40 meq PO x 1.
Potassium level:
06/29/25
06:02
Potassium 3.3 L
Based on the above, could you clarify in the progress notes, the appropriate diagnosis, if significant, that supports the above abnormalities and additional evaluation, monitoring and/or treatment rendered:
Hypokalemia, resolved
Abnormal lab value, clinically insignificant
Other, please specify
Use of terms such as suspected, likely, concern for, or probable (associated with a specific diagnosis that is being evaluated, monitored, or treated as if it exists) are acceptable and can be coded in the inpatient setting, when documented at the
time of discharge.
Thank you,
NEGRO Contreras RN
CDI Specialist
available via tiger text
Please use your independent medical judgment in providing your response.
--- NOTE | 2025-07-01 13:04 | CM ---
CM following re: discharge planning.
Reviewed pt's chart, met with pt.
Pt is s/p cystoscopy, L ureteral stent 06/29, continue supportive care. Per Urology, outpatient follow up for stone and stent removal after discharge.
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
D/C plan: home with family. to transport.
[2025-07-01 15:00] VITALS: BP 128/81
[2025-07-01 19:18] VITALS: BP 149/89
[2025-07-01] MEDS: OMNICEF 300 MG PO (20:33)
[2025-07-01 22:57] VITALS: BP 139/77
[2025-07-02 03:03] VITALS: BP 148/86
[2025-07-02 06:00] VITALS: BMI 40.2
[2025-07-02 07:05] LABS: Hematocrit 32.7 % (37.0-47.0); Hemoglobin 10.7 g/dL (12.0-16.0); Mean Corp Hgb Conc. 32.7 g/dL (33.0-37.0); Mean Corpuscular Volume 90.8 fL (81.0-99.0); Nucleated Red Blood Cells % 0 %; Platelet Count 255 10^3/uL (130-400); Red Cell Dist. Width 12.4 % (11.5-14.5)
[2025-07-02 07:27] LABS: Blood Urea Nitrogen 7 mg/dl (7-17); Calcium 8.8 mg/dl (8.4-10.2); Carbon Dioxide 30 mmol/L (22-30); Chloride 105 mmol/L (98-107); Estimated Creatinine Clearance > 125 ml/min; Glucose 87 mg/dl (70-99); Potassium 4.4 mmol/L (3.5-5.1); Sodium 140 mmol/L (135-145); eGFR > 60.00
--- NOTE | 2025-07-02 07:59 | W.PN.HOSP.TC ---
Today's Communication/Plan
-
Discharge today
Assessment / Plan
Assessment / Plan
Physical Exam
General: No Apparent Distress
HEENT: Normocephalic
Respiratory: Clear to Auscultation Bilaterally
Cardiac: Regular Rhythm and S1/S2
GI: Soft and Nontender. Positive bowel sounds.
Musculoskeletal: No Edema
Skin: Warm and Dry
Neuro: AO x 3
Psych: Calm
Assessment/Plan
Patient is a 34 y/o female with no significant PMH who presented to [facility] ED complaining of abrupt onset of L abdominal pain / L flank pain since this AM. She was febrile up to 100.[address] with obstructing stone left ureter at UVJ 5 x 4
mm with mild to moderate hydronephrosis, prominent perinephric fat stranding.
Left Ureteral Stone status post left ureteral stent placement on 06/29/25
UTI secondary to the above
Severe Sepsis secondary to the above
-s/p OR early for urinary stent placement
- Appreciate Urology evaluation.
- WBC increased as of 06/30/25, then changed IV Ceftriaxone to Cefepime on 06/30/25, especially in setting of some abdominal pain and rising WBCs, then on 07/01/25, WBC count improving, urine culture (collected after Ceftriaxone started, but before
Cefepime given) with no growth, then changed back to third generation cephalosporin but PO (Cefdinir) -- doing well on Cefdinir -- will discharge on Cefdinir 300 mg BID through 07/08/25
-Outpatient follow up with urology for stone and stent removal after discharge
Lactic acidosis due to severe sepsis
-Resolved
Hypokalemia
-Resolved
Obesity due to excess calories
- Affects all aspects of care.
- Encourage healthy diet and increased exercise with goal of weight loss.
DVT Prophylaxis: SCDs. Lovenox.
Code Status: Full COde
More than 30 minutes spent in discharge including
Final examination of the patient
Summarizing hospital stay
Instructions for continuing care to all relevant caregivers
Preparation of discharge records, prescriptions, and referral forms
Total time spent (in minutes): 38
Anticipated Discharge: Today
Subjective/Interval History
-
Date of Service: July 02, 2025
Patient was seen and examined. She reported feeling better, has only very mild pain now. She denied any fever or any other new symptoms or complaints.
Objective Data
-
Labs:
Laboratory Results
07/02/25
06:31
WBC 9.4
Hgb 10.7 L
Hct 32.7 L
Plt Count 255
Sodium 140
Potassium 4.4
Chloride 105
Carbon Dioxide 30
BUN 7
Creatinine 0.5 L
Glucose 87
Calcium 8.8
Vital Signs:
Vital Signs
Temp Pulse Resp BP Pulse Ox
98.0 F 81 17 148/86 99
07/02/25 03:03 07/02/25 03:03 07/02/25 03:03 07/02/25 03:03 07/02/25 03:03
I&O
07/01/25 07/02/25 07/03/25
06:59 06:59 06:59
Intake Total 1440 / 1440 1200 / 1200
Balance 1440 / 1440 1200 / 1200
[2025-07-02 08:12] VITALS: BP 133/85
[2025-07-02] MEDS: OMNICEF 300 MG PO (08:22)
[2025-07-02] MEDS: LOVENOX 40 MG SC (08:27)
[2025-07-02 11:18] VITALS: BP 134/86
--- NOTE | 2025-07-02 13:13 | CM ---
CM following re: discharge planning.
Reviewed pt's chart.
Pt is s/p cystoscopy, L ureteral stent 06/29, continue supportive care. Per Urology, outpatient follow up for stone and stent removal after discharge.
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
D/C plan: home with family. to transport.
[2025-07-02 15:28] VITALS: BP 143/95
== END 2025-07-02 16:40 | disposition home or self-care (01) | DRG 854 ==
LOC: 2 SOUTH 02:58
PROVIDERS: Emergency Medicine; Student in an Organized Health Care Education/Training Program; ADMITTING PHYSICIAN Hospitalist; ATTENDING PHYSICIAN Hospitalist; CONSULT PHYSICIAN Urology; EMERGENCY PHYSICIAN Student in an Organized Health Care Education/Training Program
PROC: 0T778DZ Dilation of Left Ureter with Intraluminal Device, Via Natural or Artificial Opening Endoscopic (ICD-10-PCS; 2025-06-29)
DX: A41.9 Sepsis, unspecified organism (principal); E87.20 Acidosis, unspecified; N13.6 Pyonephrosis; Z68.41 Body mass index [BMI] 40.0-44.9, adult; E66.09 Other obesity due to excess calories; Z87.440 Personal history of urinary (tract) infections; Z79.899 Other long term (current) drug therapy; R65.20 Severe sepsis without septic shock; E87.6 Hypokalemia
CPT/HCPCS: 74018; 74177; 76000; 80048; 80053; 81003; 81015; 83605; 83690; 83735; 84703; 85025; 85027; 87040; 87086; 93005; 96361; 96374; 96375; 99291; C2617; Q9967

== ENCOUNTER 2025-07-31 06:32 | Day surgery (SDC) | payer OTHER, SELFPAY ==
[2025-07-31] VITALS (7 sets, daily range): BP systolic 116–141; BP diastolic 72–84; BMI 39.3
[2025-07-31 11:53] LABS: HCG, Urine Qualitative Screen Negative
[2025-07-31] MEDS: NORMOSOL-R/PLASMALYTE-A 1000 IV (11:53)
== END 2025-07-31 16:20 | disposition home or self-care (01) ==
LOC: SDS 06:32
PROVIDERS: ATTENDING PHYSICIAN Urology
DX: N20.1 Calculus of ureter (principal)
CPT/HCPCS: 52352; 76000; 81025; 82365